=== PATIENT | male | born 1950 | race Caucasian/White ===

== ENCOUNTER 2018-09-21 09:14 | Inpatient (IN) | payer MEDICARE ==
[2018-09-21] VITALS (24 sets, daily range): BP systolic 79–161; BP diastolic 42–113
[~2018-09-21] VITALS: Ht 172.7 cm; Wt 84.4 kg
[2018-09-21] MEDS ORDERED: AMPICILLIN SOD/SULBACTAM NA 3 G in SODIUM CHLORIDE 0.9% 100 ML IV STA (10:31)
[2018-09-21] MEDS ORDERED: SULFACETAMIDE SODIUM 10% OPHTH DROPS 15ML BOTHEYE STA (10:31)
[2018-09-21] MEDS ORDERED: KETOROLAC 30MG/ML VIAL IV ONE (10:45)
[2018-09-21] MEDS ORDERED: SODIUM CHLORIDE 0.9% 1000ML BAG (SEPSIS BOLUS) IV ONE (10:45)
[2018-09-21 11:03] LABS: BASOPHILS % 0.7 % (0.0-2.0); EOSINOPHILS % 0.6 % (0.0-5.0); HEMOGLOBIN. 16.3 g/dL (14.0-18.0); LYMPHOCYTES % 9.7 % (20.0-50.0); MEAN CORPUSCULAR HEMOGLOBIN 28.8 pg (28.0-32.0); MEAN CORPUSCULAR VOLUME 86.1 fL (80.0-94.0); MEAN PLATELET VOLUME 7.9 fl (7.4-10.4); MONOCYTES % 12.4 % (2.0-8.0); NEUTROPHILS % 76.6 % (40.0-76.0); PLATELET 372 x1000/uL (130-400); RED BLOOD CELL COUNT 5.69 mill/uL (4.7-6.1); RED CELL DISTRIBUTION WIDTH 14.9 % (11.6-14.6)
[2018-09-21 11:11] LABS: CHLORIDE 95 mEq/L (98-107)
[2018-09-21 11:15] LABS: ETHANOL BLOOD < 10 mg/dL
[2018-09-21] MEDS ORDERED: LEVETIRACETAM 500MG PREMIX 100 ML IV ONE (11:15)
[2018-09-21] MEDS ORDERED: DEXAMETHASONE 10 MG/ML VIAL IV ONE (11:30)
[2018-09-21] MEDS ORDERED: VANCOMYCIN 1 G PREMIX 200 ML IV SCH (12:45)
[2018-09-21 13:31] LABS: PARTIAL THROMBOPLASTIN TIME 33.5 sec (23.4-31.0); PROTHROMBIN TIME 10.4 sec (9.1-11.1)
[2018-09-21] MEDS ORDERED: MAGNESIUM/ALUMINUM HYDROXIDE/SIMETHICONE 30ML UDC PO PRN (15:15)
[2018-09-21] MEDS ORDERED: ONDANSETRON HCL 4MG/2ML INJ IV PRN (15:15)
[2018-09-21] MEDS ORDERED: DOCUSATE SODIUM 100MG CAPSULE PO PRN (15:15)
[2018-09-21] MEDS ORDERED: IPRATROPIUM/ALBUTEROL 0.5-3(2.5)MG/3ML NEB INH PRN (15:15)
[2018-09-21] MEDS ORDERED: CLONIDINE 0.1MG TABLET PO PRN (15:15)
[2018-09-21] MEDS ORDERED: SODIUM CHLORIDE 0.45% 1,000 ML IV SCH (16:04)
[2018-09-21] MEDS ORDERED: KETOROLAC 30MG/ML VIAL IV PRN (16:09)
[2018-09-21] MEDS ORDERED: AMPICILLIN 2,000 MG in SODIUM CHLORIDE 0.9% 100 ML IV SCH (17:00)
[2018-09-21 17:19] LABS: TOTAL IRON BINDING CAPACITY 522 ug/dL (250-450)
[2018-09-21] MEDS ORDERED: NICARDIPINE 100 MG in SODIUM CHLORIDE 0.9% 60 ML IV PRN (17:30)
[2018-09-21 17:33] LABS: FERRITIN 233 ng/mL (22-322)
[2018-09-21 17:46] LABS: VITAMIN B12 SERUM 1383 pg/mL (211-911)
[2018-09-21] MEDS: DEXAMETHASONE 4MG/ML 1ML VIAL IV SCH (17:47)
[2018-09-21 17:48] LABS: FOLIC ACID (FOLATE) SERUM > 20.00 ng/mL (>5.38)
[2018-09-21] MEDS: DEXT 5%/LACTATED RINGERS 1,000 ML IV SCH (17:48)
[2018-09-21] MEDS: SULFACETAMIDE SODIUM 10% OPHTH DROPS 15ML EACHEYE SCH ×2 (18:00→21:31)
[2018-09-21 18:13] LABS: HEPATITIS B SURFACE ANTIGEN NEGATIVE
[2018-09-21 18:43] LABS: HEPATITIS A AB IGM NEGATIVE (NEGATIVE)
[2018-09-21] MEDS: AMPICILLIN 2,000 MG in SODIUM CHLORIDE 0.9% 100 ML IV SCH (20:27)
[2018-09-21] MEDS: LEVETIRACETAM 250 MG in SODIUM CHLORIDE 0.9% 100 ML IV SCH (21:30)
[2018-09-22] VITALS (135 sets, daily range): BP systolic 105–184; BP diastolic 55–111
[2018-09-22] MEDS: DEXAMETHASONE 4MG/ML 1ML VIAL IV SCH ×2 (00:07→07:06)
[2018-09-22] MEDS: VANCOMYCIN 1 G PREMIX 200 ML IV SCH ×2 (01:30→14:30)
[2018-09-22] MEDS: AMPICILLIN 2,000 MG in SODIUM CHLORIDE 0.9% 100 ML IV SCH (03:36)
[2018-09-22 05:45] LABS: BASOPHILS % 0.1 % (0.0-2.0); HEMATOCRIT. 40.1 % (42.0-52.0); HEMOGLOBIN. 13.6 g/dL (14.0-18.0); LYMPHOCYTES % 9.4 % (20.0-50.0); MEAN CORPUSCULAR VOLUME 85.3 fL (80.0-94.0); MEAN PLATELET VOLUME 8.2 fl (7.4-10.4); MONOCYTES % 9.4 % (2.0-8.0); NEUTROPHILS % 81.1 % (40.0-76.0); PLATELET 336 x1000/uL (130-400); RED CELL DISTRIBUTION WIDTH 14.5 % (11.6-14.6)
[2018-09-22 05:53] LABS: CHLORIDE 104 mEq/L (98-107)
[2018-09-22 06:03] LABS: LDL CHOLESTEROL 67 mg/dL (5-100)
[2018-09-22 06:04] LABS: HDL CHOLESTEROL 41 mg/dL (40-59); T4 FREE 1.34 ng/dL (0.76-1.46)
[2018-09-22] MEDS ORDERED: GELATIN SPONGE,ABSORBABLE 12-7MM SPONGE ONE (07:23)
[2018-09-22] MEDS ORDERED: THROMBIN (BOVINE) 5000 UNITS/VIAL TOP ONE (07:24)
[2018-09-22] MEDS ORDERED: LIDOCAINE HCL/EPINEPHRINE 1%-EPI 1:100,000 20 ML VIAL ONE (07:24)
[2018-09-22] MEDS ORDERED: BACITRACIN 50,000 UNITS/VIAL ONE (07:25)
[2018-09-22] MEDS ORDERED: NORMAL SALINE 0.9% 10 ML SYR ONE (07:28)
[2018-09-22] MEDS ORDERED: GADOBENATE DIMEGLUMINE 529 MG/ML 10ML IV ONE (07:53)
[2018-09-22] MEDS ORDERED: MULTIVITAMINS,THER W-MINERALS TABLET PO SCH (09:00)
[2018-09-22] MEDS: SULFACETAMIDE SODIUM 10% OPHTH DROPS 15ML EACHEYE SCH ×3 (09:00→21:39)
[2018-09-22] MEDS ORDERED: THIAMINE HCL 100MG TABLET PO SCH (09:00)
[2018-09-22] MEDS ORDERED: FOLIC ACID 1MG TABLET PO SCH (09:00)
[2018-09-22] MEDS: PANTOPRAZOLE SODIUM 40 MG/VIAL IV SCH (09:07)
[2018-09-22] MEDS: LEVETIRACETAM 250 MG in SODIUM CHLORIDE 0.9% 100 ML IV SCH (09:07)
[2018-09-22] MEDS ORDERED: BACITRACIN 15GM TUBE TOP ONE (09:23)
[2018-09-22] MEDS ORDERED: POVIDONE-IODINE OINT 28.4GM TOP ONE (09:23)
[2018-09-22] MEDS ORDERED: LIDOCAINE HCL/PF 1% 10 MG/ML 5ML VIAL ONE (10:05)
[2018-09-22] MEDS ORDERED: PROPOFOL 200MG/20ML VIAL IV ONE (10:05)
[2018-09-22] MEDS ORDERED: FENTANYL CITRATE/PF 50MCG/ML 2ML VIAL ONE ×2 (10:05→11:13)
[2018-09-22] MEDS ORDERED: CEFAZOLIN SODIUM 1000MG/VIAL ONE (10:05)
[2018-09-22] MEDS ORDERED: ROCURONIUM BROMIDE 10MG/ML VIAL 5ML IV ONE ×2 (10:05→10:59)
[2018-09-22] MEDS ORDERED: SODIUM CHLORIDE 0.9% 10ML VIAL ONE ×2 (10:07→11:09)
[2018-09-22] MEDS ORDERED: ONDANSETRON HCL 4MG/2ML INJ ONE (10:10)
[2018-09-22] MEDS ORDERED: NICARDIPINE 100 MG in SODIUM CHLORIDE 0.9% 60 ML IV PRN (10:15)
[2018-09-22] MEDS ORDERED: VECURONIUM BROMIDE 10 MG/VIAL IV ONE (11:09)
[2018-09-22] MEDS ORDERED: LEVETIRACETAM 500 MG in SODIUM CHLORIDE 0.9% 100 ML IV SCH (11:15)
[2018-09-22] MEDS ORDERED: LEVOFLOXACIN 500MG PREMIX 100 ML IV SCH (11:15)
[2018-09-22] MEDS ORDERED: LEVETIRACETAM 500MG PREMIX 100 ML IV SCH (11:15)
[2018-09-22] MEDS ORDERED: HYDROMORPHONE HCL/PF 2MG/ML CPJ IV PRN (11:30)
[2018-09-22] MEDS ORDERED: LABETALOL 5MG/ML SYR 20 MG/4 ML SYRINGE IV PRN (11:30)
[2018-09-22] MEDS ORDERED: ONDANSETRON HCL 4MG/2ML INJ IV PRN (11:30)
[2018-09-22] MEDS ORDERED: MEPERIDINE HCL/PF 25MG/ML CPJ IV PRN (11:30)
[2018-09-22] MEDS ORDERED: MORPHINE SULFATE 4 MG/ML CPJ (NOT FOR IM USE) IV PRN (11:45)
[2018-09-22] MEDS: NICARDIPINE 100 MG in SODIUM CHLORIDE 0.9% 60 ML IV PRN ×2 (12:00→18:16)
[2018-09-22] MEDS: DEXT 5%/LACTATED RINGERS 1,000 ML IV SCH (12:00)
[2018-09-22] MEDS ORDERED: HYDRALAZINE 20MG/ML VIAL IV ONE (12:15)
[2018-09-22] MEDS ORDERED: PROPOFOL 10MG/ML 100ML 100 ML IV PRN (13:00)
[2018-09-22] MEDS ORDERED: FOLIC ACID 1 MG, THIAMINE HCL 100 MG, MVI, ADULT NO.1 10 ML in DEXT 5%/LACTATED RINGERS... IV ONE ×4 (13:30)
[2018-09-22] MEDS: PROPOFOL 10MG/ML 100ML 100 ML IV PRN ×2 (13:30→21:40)
[2018-09-22 13:44] LABS: BG BASE EXCESS -2.7 mmol/L (-2.0-2.0); BG CARBOXYHEMOGLOBIN 0.7 % (0.5-1.5); BG DEOXYHEMOGLOBIN 0.3 % (0.0-5.0); BG FRACTION INSPIRED OXYGEN 100; BG HCO3 ACT 21.8 mmol/L (22.0-26.0); BG METHEMOGLOBIN 0.5 % (0.0-1.5); BG OXYGEN SATURATION 99.7 % (92.0-98.5); BG OXYHEMOGLOBIN 98.5 % (94.0-97.0); BG PCO2 36.9 mmHg (35.0-45.0); BG PH 7.389 (7.350-7.450); BG PO2 371.2 mmHg (75.0-100.0); BG SAMPLE SITE RIGHT RADIAL; BG TIDAL VOLUME(mL) 500 mL; BG TOTAL HEMOGLOBIN 14.5 g/dL (12.0-18.0); BG VENT MODE VENT - A/C; BG VENT RATE 12 set
[2018-09-22] MEDS ORDERED: LIDOCAINE HCL 1% 20ML VIAL (Pyxis) INJ ONE (14:26)
[2018-09-22] MEDS: PIPERACILLIN/TAZ 3.375G PREMIX 50 ML IV SCH ×2 (19:00→23:54)
[2018-09-22] MEDS: LEVETIRACETAM 500 MG in SODIUM CHLORIDE 0.9% 100 ML IV SCH (21:40)
[2018-09-23] VITALS (94 sets, daily range): BP systolic 98–143; BP diastolic 51–87
[2018-09-23] MEDS: VANCOMYCIN 1 G PREMIX 200 ML IV SCH (01:42)
[2018-09-23] MEDS: PROPOFOL 10MG/ML 100ML 100 ML IV PRN ×4 (01:43→12:43)
[2018-09-23] MEDS: PIPERACILLIN/TAZ 3.375G PREMIX 50 ML IV SCH ×3 (05:04→17:42)
[2018-09-23 06:07] LABS: BASOPHILS % 0.2 % (0.0-2.0); HEMATOCRIT. 36.9 % (42.0-52.0); HEMOGLOBIN. 12.2 g/dL (14.0-18.0); LYMPHOCYTES % 12.1 % (20.0-50.0); MEAN CORPUSCULAR HEMOGLOBIN 28.5 pg (28.0-32.0); MEAN PLATELET VOLUME 8.3 fl (7.4-10.4); MONOCYTES % 13.4 % (2.0-8.0); NEUTROPHILS % 73.3 % (40.0-76.0); PLATELET 288 x1000/uL (130-400); RED CELL DISTRIBUTION WIDTH 14.7 % (11.6-14.6)
[2018-09-23 06:35] LABS: CHLORIDE 107 mEq/L (98-107)
[2018-09-23 07:31] LABS: *AMPHETAMINES SCREEN URINE NEGATIVE (NEGATIVE); *BARBITURATES SCREEN URINE NEGATIVE (NEGATIVE); *BENZODIAZEPINES SCREEN URINE NEGATIVE (NEGATIVE); *COCAINE SCREEN URINE NEGATIVE (NEGATIVE)
[2018-09-23 07:32] LABS: CANNABINOID URINE SCREEN NEGATIVE (NEGATIVE); METHADONE URINE SCREEN NEGATIVE (NEGATIVE); OPIATES URINE SCREEN PRESUMTIVE POSITIVE (NEGATIVE); PHENCYCLIDINE URINE SCREEN NEGATIVE (NEGATIVE)
[2018-09-23] MEDS: LEVETIRACETAM 500 MG in SODIUM CHLORIDE 0.9% 100 ML IV SCH ×2 (08:47→20:34)
[2018-09-23] MEDS: PANTOPRAZOLE SODIUM 40 MG/VIAL IV SCH (08:47)
[2018-09-23 08:54] LABS: CLARITY URINE CLOUDY (CLEAR); COLOR URINE YELLOW (YELLOW); KETONES URINE NEGATIVE (NEGATIVE); LEUKOCYTE ESTERASE URINE NEGATIVE (NEGATIVE); NITRITE URINE NEGATIVE (NEGATIVE); OCCULT BLOOD URINE 2+ (NEGATIVE); PH URINE 5.5 (4.5-8.0); PROTEIN URINE TRACE (NEGATIVE); SPECIFIC GRAVITY URINE 1.041 (1.005-1.030)
[2018-09-23] MEDS: SULFACETAMIDE SODIUM 10% OPHTH DROPS 15ML EACHEYE SCH ×4 (08:59→20:34)
[2018-09-23] MEDS: DEXT 5%/LACTATED RINGERS 1,000 ML IV SCH ×2 (14:55→18:15)
[2018-09-23] MEDS: VANCOMYCIN 750 MG PREMIX 150 ML IV SCH (16:37)
[2018-09-23 17:16] LABS: BG BASE EXCESS 2.5 mmol/L (-2.0-2.0); BG CARBOXYHEMOGLOBIN 0.3 % (0.5-1.5); BG DEOXYHEMOGLOBIN 0.9 % (0.0-5.0); BG FRACTION INSPIRED OXYGEN 40; BG METHEMOGLOBIN 0.2 % (0.0-1.5); BG OXYGEN SATURATION 99.1 % (92.0-98.5); BG OXYHEMOGLOBIN 98.6 % (94.0-97.0); BG PCO2 36.5 mmHg (35.0-45.0); BG PH 7.471 (7.350-7.450); BG PO2 158.9 mmHg (75.0-100.0); BG PRESSURE SUPPORT 6; BG SAMPLE SITE RIGHT BRACHIAL; BG TOTAL HEMOGLOBIN 13.2 g/dL (12.0-18.0); BG VENT MODE VENT - CPAP
[2018-09-24] VITALS (94 sets, daily range): BP systolic 104–156; BP diastolic 56–101
[2018-09-24] MEDS: PIPERACILLIN/TAZ 3.375G PREMIX 50 ML IV SCH ×4 (00:36→18:56)
[2018-09-24] MEDS: NICARDIPINE 100 MG in SODIUM CHLORIDE 0.9% 60 ML IV PRN ×2 (03:56→18:57)
[2018-09-24] MEDS: VANCOMYCIN 750 MG PREMIX 150 ML IV SCH (05:20)
[2018-09-24 05:52] LABS: BASOPHILS % 0.5 % (0.0-2.0); EOSINOPHILS % 4.9 % (0.0-5.0); HEMATOCRIT. 35.7 % (42.0-52.0); HEMOGLOBIN. 11.9 g/dL (14.0-18.0); LYMPHOCYTES % 17.5 % (20.0-50.0); MEAN CORPUSCULAR HEMOGLOBIN 28.8 pg (28.0-32.0); MEAN CORPUSCULAR VOLUME 86.3 fL (80.0-94.0); MEAN PLATELET VOLUME 8.5 fl (7.4-10.4); MONOCYTES % 13.8 % (2.0-8.0); NEUTROPHILS % 63.3 % (40.0-76.0); PLATELET 291 x1000/uL (130-400); RED BLOOD CELL COUNT 4.14 mill/uL (4.7-6.1); RED CELL DISTRIBUTION WIDTH 14.9 % (11.6-14.6)
[2018-09-24 05:55] LABS: CHLORIDE 105 mEq/L (98-107)
[2018-09-24] MEDS: PANTOPRAZOLE SODIUM 40 MG/VIAL IV SCH (08:01)
[2018-09-24] MEDS: LEVETIRACETAM 500 MG in SODIUM CHLORIDE 0.9% 100 ML IV SCH ×2 (08:01→21:08)
[2018-09-24 08:27] LABS: HIV SCREEN 4G Non Reactive (Non Reactive)
[2018-09-24] MEDS: SULFACETAMIDE SODIUM 10% OPHTH DROPS 15ML EACHEYE SCH ×4 (09:00→21:08)
[2018-09-24] MEDS: DEXT 5%/LACTATED RINGERS 1,000 ML IV SCH (10:55)
[2018-09-24] MEDS ORDERED: DILTIAZEM HCL 30MG TABLET PO NR (14:00)
[2018-09-24] MEDS ORDERED: POTASSIUM CHLORIDE INJ 40 MEQ in DEXT 5% WATER 250 ML IV SCH (15:30)
[2018-09-24] MEDS: ACETAMINOPHEN 325MG TABLET PO PRN (19:32)
[2018-09-24] MEDS: DILTIAZEM HCL 30MG TABLET PO SCH (19:32)
[2018-09-24] MEDS: VANCOMYCIN 750 MG in SODIUM CHLORIDE 0.9% 100 ML IV SCH (20:01)
[2018-09-25] VITALS (97 sets, daily range): BP systolic 114–158; BP diastolic 60–86
[2018-09-25] MEDS: PIPERACILLIN/TAZ 3.375G PREMIX 50 ML IV SCH ×5 (00:50→23:48)
[2018-09-25] MEDS: DEXT 5%/LACTATED RINGERS 1,000 ML IV SCH (03:13)
[2018-09-25] MEDS: VANCOMYCIN 750 MG in SODIUM CHLORIDE 0.9% 100 ML IV SCH (04:18)
[2018-09-25] MEDS: DILTIAZEM HCL 30MG TABLET PO SCH ×4 (05:21→21:06)
[2018-09-25 06:27] LABS: BASOPHILS % 0.5 % (0.0-2.0); EOSINOPHILS % 5.9 % (0.0-5.0); HEMOGLOBIN. 12.7 g/dL (14.0-18.0); LYMPHOCYTES % 20.8 % (20.0-50.0); MEAN CORPUSCULAR VOLUME 84.8 fL (80.0-94.0); MEAN PLATELET VOLUME 8.3 fl (7.4-10.4); MONOCYTES % 13.1 % (2.0-8.0); NEUTROPHILS % 59.7 % (40.0-76.0); PLATELET 330 x1000/uL (130-400); RED BLOOD CELL COUNT 4.36 mill/uL (4.7-6.1); RED CELL DISTRIBUTION WIDTH 14.4 % (11.6-14.6)
[2018-09-25 06:28] LABS: CHLORIDE 103 mEq/L (98-107)
[2018-09-25] MEDS: PANTOPRAZOLE SODIUM 40 MG/VIAL IV SCH (08:48)
[2018-09-25] MEDS: SULFACETAMIDE SODIUM 10% OPHTH DROPS 15ML EACHEYE SCH ×4 (08:48→21:05)
[2018-09-25] MEDS: LEVETIRACETAM 500 MG in SODIUM CHLORIDE 0.9% 100 ML IV SCH ×2 (08:49→21:06)
[2018-09-25] MEDS ORDERED: LOSARTAN POTASSIUM 25 MG TABLET NG NR (11:15)
[2018-09-25] MEDS: VANCOMYCIN 1,250 MG in SODIUM CHLORIDE 0.9% 250 ML IV SCH (14:30)
[2018-09-25] MEDS: NICARDIPINE 100 MG in SODIUM CHLORIDE 0.9% 60 ML IV PRN (18:12)
[2018-09-25] MEDS: MORPHINE SULFATE 4 MG/ML CPJ (NOT FOR IM USE) IV PRN (18:17)
[2018-09-26] VITALS (82 sets, daily range): BP systolic 101–137; BP diastolic 39–99
[2018-09-26] MEDS: VANCOMYCIN 1,250 MG in SODIUM CHLORIDE 0.9% 250 ML IV SCH (02:54)
[2018-09-26 05:49] LABS: BASOPHILS % 0.6 % (0.0-2.0); EOSINOPHILS % 4.4 % (0.0-5.0); HEMOGLOBIN. 12.6 g/dL (14.0-18.0); LYMPHOCYTES % 20.8 % (20.0-50.0); MEAN CORPUSCULAR VOLUME 85.2 fL (80.0-94.0); MEAN PLATELET VOLUME 7.8 fl (7.4-10.4); MONOCYTES % 11.4 % (2.0-8.0); NEUTROPHILS % 62.8 % (40.0-76.0); PLATELET 369 x1000/uL (130-400); RED BLOOD CELL COUNT 4.34 mill/uL (4.7-6.1); RED CELL DISTRIBUTION WIDTH 14.5 % (11.6-14.6)
[2018-09-26 06:04] LABS: CHLORIDE 102 mEq/L (98-107)
[2018-09-26] MEDS: DILTIAZEM HCL 30MG TABLET PO SCH (06:16)
[2018-09-26] MEDS: PIPERACILLIN/TAZ 3.375G PREMIX 50 ML IV SCH ×3 (06:17→20:17)
[2018-09-26] MEDS: SULFACETAMIDE SODIUM 10% OPHTH DROPS 15ML EACHEYE SCH ×4 (08:45→20:20)
[2018-09-26] MEDS: PANTOPRAZOLE SODIUM 40 MG/VIAL IV SCH (08:45)
[2018-09-26] MEDS: LEVETIRACETAM 500 MG in SODIUM CHLORIDE 0.9% 100 ML IV SCH ×2 (08:46→21:20)
[2018-09-26] MEDS: NICARDIPINE 100 MG in SODIUM CHLORIDE 0.9% 60 ML IV PRN (08:48)
[2018-09-26] MEDS ORDERED: LOSARTAN POTASSIUM 25 MG TABLET NG SCH (09:00)
[2018-09-26] MEDS ORDERED: LOSARTAN POTASSIUM 25 MG TABLET PO NR (09:00)
[2018-09-26] MEDS ORDERED: LOSARTAN POTASSIUM 25 MG TABLET PO ONE (09:30)
[2018-09-26] MEDS ORDERED: BISACODYL 10MG SUPP PR PRN (09:30)
[2018-09-26] MEDS ORDERED: PIPERACILLIN/TAZ 3.375G PREMIX 50 ML IV SCH (11:45)
[2018-09-26] MEDS: VANCOMYCIN 1250MG in DEXTROSE 5% WATER 250ML IV SCH (15:08)
[2018-09-26] MEDS: MORPHINE SULFATE 4 MG/ML CPJ (NOT FOR IM USE) IV PRN ×2 (15:09→21:52)
[2018-09-26] MEDS: DOCUSATE SODIUM 100MG CAPSULE PO SCH (17:06)
[2018-09-26] MEDS ORDERED: LOSARTAN POTASSIUM 50 MG TABLET NG SCH (21:00)
[2018-09-26] MEDS ORDERED: LACTULOSE 20G/30ML UDC PO PRN (21:00)
[2018-09-26] MEDS: DILTIAZEM HCL 90MG TABLET PO SCH (21:22)
[2018-09-27] VITALS (25 sets, daily range): BP systolic 100–144; BP diastolic 55–99
[2018-09-27] MEDS: PIPERACILLIN/TAZ 3.375G PREMIX 50 ML IV SCH ×4 (02:21→20:30)
[2018-09-27] MEDS: MORPHINE SULFATE 4 MG/ML CPJ (NOT FOR IM USE) IV PRN (02:22)
[2018-09-27] MEDS: VANCOMYCIN 1250MG in DEXTROSE 5% WATER 250ML IV SCH ×2 (04:13→16:02)
[2018-09-27] MEDS: DILTIAZEM HCL 90MG TABLET PO SCH ×3 (05:21→21:47)
[2018-09-27 05:31] LABS: BASOPHILS % 0.9 % (0.0-2.0); EOSINOPHILS % 4.4 % (0.0-5.0); HEMATOCRIT. 36.2 % (42.0-52.0); HEMOGLOBIN. 12.3 g/dL (14.0-18.0); LYMPHOCYTES % 17.4 % (20.0-50.0); MEAN CORPUSCULAR VOLUME 85.3 fL (80.0-94.0); MEAN PLATELET VOLUME 7.6 fl (7.4-10.4); MONOCYTES % 10.7 % (2.0-8.0); NEUTROPHILS % 66.6 % (40.0-76.0); PLATELET 392 x1000/uL (130-400); RED BLOOD CELL COUNT 4.24 mill/uL (4.7-6.1); RED CELL DISTRIBUTION WIDTH 14.7 % (11.6-14.6)
[2018-09-27 05:43] LABS: CHLORIDE 103 mEq/L (98-107)
[2018-09-27] MEDS: LEVETIRACETAM 500 MG in SODIUM CHLORIDE 0.9% 100 ML IV SCH ×2 (09:12→22:16)
[2018-09-27] MEDS: PANTOPRAZOLE SODIUM 40 MG/VIAL IV SCH (09:16)
[2018-09-27] MEDS: DOCUSATE SODIUM 100MG CAPSULE PO SCH ×2 (09:17→17:39)
[2018-09-27] MEDS: ACETAMINOPHEN 325MG TABLET PO PRN (09:17)
[2018-09-27] MEDS: LOSARTAN POTASSIUM 50 MG TABLET PO SCH (09:17)
[2018-09-27] MEDS: SULFACETAMIDE SODIUM 10% OPHTH DROPS 15ML EACHEYE SCH ×4 (10:00→20:36)
[2018-09-27] MEDS: HYDROCODONE/ACETAMINOPHEN 5/325MG TABLET PO PRN ×2 (15:34→20:31)
[2018-09-28] VITALS: BP 103/69
[2018-09-28] MEDS: HYDROCODONE/ACETAMINOPHEN 5/325MG TABLET PO PRN ×2 (00:47→14:11)
[2018-09-28] MEDS: PIPERACILLIN/TAZ 3.375G PREMIX 50 ML IV SCH ×4 (02:52→21:11)
[2018-09-28] MEDS: VANCOMYCIN 1250MG in DEXTROSE 5% WATER 250ML IV SCH ×2 (03:44→14:55)
[2018-09-28 04:00] VITALS: BP 141/75
[2018-09-28] MEDS: DILTIAZEM HCL 90MG TABLET PO SCH ×3 (05:43→21:11)
[2018-09-28 06:08] LABS: BASOPHILS % 0.9 % (0.0-2.0); EOSINOPHILS % 4.4 % (0.0-5.0); HEMATOCRIT. 38.5 % (42.0-52.0); HEMOGLOBIN. 12.9 g/dL (14.0-18.0); MEAN CORPUSCULAR HEMOGLOBIN 28.9 pg (28.0-32.0); MEAN CORPUSCULAR VOLUME 86.4 fL (80.0-94.0); MEAN PLATELET VOLUME 7.3 fl (7.4-10.4); MONOCYTES % 10.4 % (2.0-8.0); NEUTROPHILS % 64.3 % (40.0-76.0); PLATELET 383 x1000/uL (130-400); RED BLOOD CELL COUNT 4.45 mill/uL (4.7-6.1); RED CELL DISTRIBUTION WIDTH 14.5 % (11.6-14.6)
[2018-09-28 06:16] LABS: CHLORIDE 101 mEq/L (98-107)
[2018-09-28 07:47] VITALS: BP 141/82
[2018-09-28] MEDS: PANTOPRAZOLE SODIUM 40 MG/VIAL IV SCH (08:47)
[2018-09-28] MEDS: LOSARTAN POTASSIUM 50 MG TABLET PO SCH (08:47)
[2018-09-28] MEDS: DOCUSATE SODIUM 100MG CAPSULE PO SCH ×2 (08:47→17:52)
[2018-09-28] MEDS: LEVETIRACETAM 500 MG in SODIUM CHLORIDE 0.9% 100 ML IV SCH ×2 (08:48→21:11)
[2018-09-28] MEDS: SULFACETAMIDE SODIUM 10% OPHTH DROPS 15ML EACHEYE SCH ×3 (08:50→17:52)
[2018-09-28 12:00] VITALS: BP 134/77
[2018-09-28 16:14] VITALS: BP 125/74
[2018-09-28 20:00] VITALS: BP 144/87
[2018-09-29] VITALS (7 sets, daily range): BP systolic 104–148; BP diastolic 67–114
[2018-09-29] MEDS: HYDROCODONE/ACETAMINOPHEN 5/325MG TABLET PO PRN
[2018-09-29] MEDS: PIPERACILLIN/TAZ 3.375G PREMIX 50 ML IV SCH ×3 (01:46→14:27)
[2018-09-29] MEDS: VANCOMYCIN 1250MG in DEXTROSE 5% WATER 250ML IV SCH (03:21)
[2018-09-29] MEDS: DILTIAZEM HCL 90MG TABLET PO SCH ×3 (06:09→21:25)
[2018-09-29 06:51] LABS: BASOPHILS % 0.9 % (0.0-2.0); EOSINOPHILS % 5.3 % (0.0-5.0); HEMATOCRIT. 38.7 % (42.0-52.0); LYMPHOCYTES % 21.4 % (20.0-50.0); MEAN CORPUSCULAR HEMOGLOBIN 28.9 pg (28.0-32.0); MEAN PLATELET VOLUME 7.6 fl (7.4-10.4); MONOCYTES % 11.3 % (2.0-8.0); NEUTROPHILS % 61.1 % (40.0-76.0); PLATELET 442 x1000/uL (130-400); RED CELL DISTRIBUTION WIDTH 14.6 % (11.6-14.6)
[2018-09-29 06:56] LABS: CHLORIDE 100 mEq/L (98-107)
[2018-09-29] MEDS: PANTOPRAZOLE SODIUM 40 MG/VIAL IV SCH (08:51)
[2018-09-29] MEDS: LOSARTAN POTASSIUM 50 MG TABLET PO SCH (08:51)
[2018-09-29] MEDS: DOCUSATE SODIUM 100MG CAPSULE PO SCH ×3 (08:51→17:50)
[2018-09-29] MEDS: LEVETIRACETAM 500 MG in SODIUM CHLORIDE 0.9% 100 ML IV SCH ×2 (09:44→21:15)
[2018-09-29] MEDS: ACETAMINOPHEN 325MG TABLET PO PRN (15:47)
[2018-09-29] MEDS: LACTULOSE 20G/30ML UDC PO SCH ×3 (15:48→21:15)
[2018-09-29] MEDS: POLYETHYLENE GLYCOL 3350 (17GM) 1 DOSE PACK PO SCH (21:00)
[2018-09-29] MEDS: SULFAMETHOXAZOLE/TRIMETHOPRIM 800/160MG TABLET PO SCH (22:24)
[2018-09-30] VITALS: BP 130/73
[2018-09-30 04:00] VITALS: BP 146/87
[2018-09-30] MEDS: DILTIAZEM HCL 90MG TABLET PO SCH ×3 (05:27→21:22)
[2018-09-30] MEDS: DOCUSATE SODIUM 100MG CAPSULE PO SCH ×3 (08:52→18:07)
[2018-09-30] MEDS: SULFAMETHOXAZOLE/TRIMETHOPRIM 800/160MG TABLET PO SCH ×2 (08:52→20:38)
[2018-09-30] MEDS: LOSARTAN POTASSIUM 50 MG TABLET PO SCH (08:52)
[2018-09-30] MEDS: PANTOPRAZOLE SODIUM 40 MG/VIAL IV SCH (08:52)
[2018-09-30] MEDS: LEVETIRACETAM 500 MG in SODIUM CHLORIDE 0.9% 100 ML IV SCH ×2 (08:56→20:38)
[2018-09-30 12:00] VITALS: BP 137/80
[2018-09-30] MEDS ORDERED: NA PHOS,M-B/NA PHOS,DI-BA ENEMA 118ML PR NR (13:00)
[2018-09-30 20:00] VITALS: BP 110/57
[2018-09-30] MEDS: POLYETHYLENE GLYCOL 3350 (17GM) 1 DOSE PACK PO SCH (20:38)
[2018-10-01] VITALS: BP 143/77
[2018-10-01 04:00] VITALS: BP 128/60
[2018-10-01] MEDS: DILTIAZEM HCL 90MG TABLET PO SCH ×3 (05:15→22:00)
[2018-10-01 07:19] LABS: HEMATOCRIT. 40.7 % (42.0-52.0); HEMOGLOBIN. 13.7 g/dL (14.0-18.0); LYMPHOCYTES % 20.6 % (20.0-50.0); MEAN CORPUSCULAR HEMOGLOBIN 28.7 pg (28.0-32.0); MEAN CORPUSCULAR VOLUME 85.4 fL (80.0-94.0); MEAN PLATELET VOLUME 7.7 fl (7.4-10.4); MONOCYTES % 11.2 % (2.0-8.0); NEUTROPHILS % 64.2 % (40.0-76.0); PLATELET 485 x1000/uL (130-400); RED BLOOD CELL COUNT 4.77 mill/uL (4.7-6.1); RED CELL DISTRIBUTION WIDTH 14.9 % (11.6-14.6)
[2018-10-01 07:36] LABS: CHLORIDE 102 mEq/L (98-107)
[2018-10-01] MEDS: LOSARTAN POTASSIUM 50 MG TABLET PO SCH (08:52)
[2018-10-01] MEDS: LEVETIRACETAM 500 MG in SODIUM CHLORIDE 0.9% 100 ML IV SCH (08:52)
[2018-10-01] MEDS: SULFAMETHOXAZOLE/TRIMETHOPRIM 800/160MG TABLET PO SCH ×2 (08:52→21:59)
[2018-10-01] MEDS: DOCUSATE SODIUM 100MG CAPSULE PO SCH ×2 (08:52→16:39)
[2018-10-01] MEDS: PANTOPRAZOLE SODIUM 40 MG/VIAL IV SCH (08:52)
[2018-10-01 12:00] VITALS: BP 108/64
[2018-10-01] MEDS ORDERED: NA PHOS,M-B/NA PHOS,DI-BA ENEMA 118ML PR NR (13:15)
[2018-10-01 20:00] VITALS: BP 125/87
[2018-10-01] MEDS: POLYETHYLENE GLYCOL 3350 (17GM) 1 DOSE PACK PO SCH (21:58)
[2018-10-01] MEDS: LEVETIRACETAM 500MG TABLET PO SCH (21:59)
[2018-10-01] MEDS: HYDROCODONE/ACETAMINOPHEN 5/325MG TABLET PO PRN (22:07)
[2018-10-01 23:58] VITALS: BP 132/68
[2018-10-02 04:00] VITALS: BP 133/77
[2018-10-02] MEDS: DILTIAZEM HCL 90MG TABLET PO SCH ×3 (06:27→21:19)
[2018-10-02 08:00] VITALS: BP 145/78
[2018-10-02] MEDS: LEVETIRACETAM 500MG TABLET PO SCH ×2 (09:22→21:20)
[2018-10-02] MEDS: SULFAMETHOXAZOLE/TRIMETHOPRIM 800/160MG TABLET PO SCH ×2 (09:22→21:20)
[2018-10-02] MEDS: LOSARTAN POTASSIUM 50 MG TABLET PO SCH (09:22)
[2018-10-02] MEDS: PANTOPRAZOLE SODIUM 40 MG/VIAL IV SCH (09:23)
[2018-10-02] MEDS: DOCUSATE SODIUM 100MG CAPSULE PO SCH ×2 (09:23→18:21)
[2018-10-02 12:00] VITALS: BP 132/82
[2018-10-02 16:00] VITALS: BP 125/70
[2018-10-02] MEDS: HYDROCODONE/ACETAMINOPHEN 5/325MG TABLET PO PRN (18:08)
[2018-10-02 20:00] VITALS: BP 121/76
[2018-10-02] MEDS: POLYETHYLENE GLYCOL 3350 (17GM) 1 DOSE PACK PO SCH (21:20)
[2018-10-03] VITALS: BP 120/83
[2018-10-03 04:00] VITALS: BP 121/72
[2018-10-03] MEDS: DILTIAZEM HCL 90MG TABLET PO SCH ×3 (05:44→21:37)
[2018-10-03 08:00] VITALS: BP 132/63
[2018-10-03] MEDS: PANTOPRAZOLE SODIUM 40 MG/VIAL IV SCH (08:30)
[2018-10-03] MEDS: SULFAMETHOXAZOLE/TRIMETHOPRIM 800/160MG TABLET PO SCH ×2 (08:30→21:38)
[2018-10-03] MEDS: LOSARTAN POTASSIUM 50 MG TABLET PO SCH (08:30)
[2018-10-03] MEDS: DOCUSATE SODIUM 100MG CAPSULE PO SCH ×2 (08:30→16:00)
[2018-10-03] MEDS: LEVETIRACETAM 500MG TABLET PO SCH ×2 (08:30→21:38)
[2018-10-03 12:00] VITALS: BP 107/57
[2018-10-03 16:00] VITALS: BP 114/67
[2018-10-03 20:00] VITALS: BP 134/77
[2018-10-03] MEDS: POLYETHYLENE GLYCOL 3350 (17GM) 1 DOSE PACK PO SCH (21:37)
[2018-10-04] VITALS: BP 127/76
[2018-10-04 04:00] VITALS: BP 117/75
[2018-10-04] MEDS: DILTIAZEM HCL 90MG TABLET PO SCH ×3 (07:08→21:27)
[2018-10-04 08:00] VITALS: BP 123/72
[2018-10-04] MEDS: PANTOPRAZOLE SODIUM 40 MG/VIAL IV SCH (08:42)
[2018-10-04] MEDS: DOCUSATE SODIUM 100MG CAPSULE PO SCH ×2 (08:42→16:00)
[2018-10-04] MEDS: SULFAMETHOXAZOLE/TRIMETHOPRIM 800/160MG TABLET PO SCH ×2 (08:42→21:26)
[2018-10-04] MEDS: LOSARTAN POTASSIUM 50 MG TABLET PO SCH (08:43)
[2018-10-04] MEDS: LEVETIRACETAM 500MG TABLET PO SCH ×2 (08:43→21:26)
[2018-10-04 12:00] VITALS: BP 126/69
[2018-10-04 16:00] VITALS: BP 103/50
[2018-10-04 20:00] VITALS: BP 136/78
[2018-10-04] MEDS: POLYETHYLENE GLYCOL 3350 (17GM) 1 DOSE PACK PO SCH (21:27)
[2018-10-05] VITALS: BP 118/72
[2018-10-05 04:00] VITALS: BP 144/73
[2018-10-05] MEDS: DILTIAZEM HCL 90MG TABLET PO SCH ×3 (06:49→22:48)
[2018-10-05 06:52] LABS: BASOPHILS % 0.9 % (0.0-2.0); EOSINOPHILS % 3.5 % (0.0-5.0); HEMATOCRIT. 42.5 % (42.0-52.0); HEMOGLOBIN. 14.6 g/dL (14.0-18.0); LYMPHOCYTES % 21.1 % (20.0-50.0); MEAN CORPUSCULAR HEMOGLOBIN 29.2 pg (28.0-32.0); MEAN CORPUSCULAR VOLUME 85.2 fL (80.0-94.0); MEAN PLATELET VOLUME 7.8 fl (7.4-10.4); MONOCYTES % 9.1 % (2.0-8.0); NEUTROPHILS % 65.4 % (40.0-76.0); PLATELET 435 x1000/uL (130-400); RED BLOOD CELL COUNT 4.99 mill/uL (4.7-6.1); RED CELL DISTRIBUTION WIDTH 14.8 % (11.6-14.6)
[2018-10-05 07:24] LABS: CHLORIDE 102 mEq/L (98-107)
[2018-10-05 08:00] VITALS: BP 128/74
[2018-10-05] MEDS: LOSARTAN POTASSIUM 50 MG TABLET PO SCH (09:00)
[2018-10-05] MEDS: DOCUSATE SODIUM 100MG CAPSULE PO SCH ×2 (09:05→18:33)
[2018-10-05] MEDS: LEVETIRACETAM 500MG TABLET PO SCH ×2 (09:05→22:47)
[2018-10-05] MEDS: PANTOPRAZOLE SODIUM 40 MG/VIAL IV SCH (09:05)
[2018-10-05] MEDS: SULFAMETHOXAZOLE/TRIMETHOPRIM 800/160MG TABLET PO SCH ×2 (09:05→22:47)
[2018-10-05 12:00] VITALS: BP 137/78
[2018-10-05 16:00] VITALS: BP 127/72
[2018-10-05 20:00] VITALS: BP 107/53
[2018-10-05] MEDS: POLYETHYLENE GLYCOL 3350 (17GM) 1 DOSE PACK PO SCH (22:48)
[2018-10-06] VITALS: BP 90/51
[2018-10-06 04:00] VITALS: BP 101/59
[2018-10-06] MEDS: DILTIAZEM HCL 90MG TABLET PO SCH ×3 (06:00→21:43)
[2018-10-06 08:08] VITALS: BP 122/82
[2018-10-06] MEDS: DOCUSATE SODIUM 100MG CAPSULE PO SCH ×2 (08:33→16:52)
[2018-10-06] MEDS: SULFAMETHOXAZOLE/TRIMETHOPRIM 800/160MG TABLET PO SCH ×2 (08:33→21:43)
[2018-10-06] MEDS: LEVETIRACETAM 500MG TABLET PO SCH ×2 (08:33→21:43)
[2018-10-06] MEDS: PANTOPRAZOLE SODIUM 40 MG/VIAL IV SCH (08:33)
[2018-10-06] MEDS: LOSARTAN POTASSIUM 50 MG TABLET PO SCH (08:33)
[2018-10-06 12:00] VITALS: BP 119/83
[2018-10-06] MEDS ORDERED: LACTULOSE 20G/30ML UDC PO NR (15:55)
[2018-10-06 16:00] VITALS: BP 109/72
[2018-10-06] MEDS: HYDROCODONE/ACETAMINOPHEN 5/325MG TABLET PO PRN (16:53)
[2018-10-06 20:00] VITALS: BP 119/66
[2018-10-06] MEDS: POLYETHYLENE GLYCOL 3350 (17GM) 1 DOSE PACK PO SCH (21:00)
[2018-10-07] VITALS: BP 117/65
[2018-10-07 04:00] VITALS: BP 136/87
[2018-10-07] MEDS: DILTIAZEM HCL 90MG TABLET PO SCH ×2 (06:13→14:00)
[2018-10-07 08:00] VITALS: BP 115/67
[2018-10-07] MEDS: PANTOPRAZOLE SODIUM 40 MG/VIAL IV SCH (09:43)
[2018-10-07] MEDS: LEVETIRACETAM 500MG TABLET PO SCH (09:43)
[2018-10-07] MEDS: DOCUSATE SODIUM 100MG CAPSULE PO SCH ×2 (09:43→16:12)
[2018-10-07] MEDS: LOSARTAN POTASSIUM 50 MG TABLET PO SCH (09:45)
[2018-10-07 16:00] VITALS: BP 120/70
[2018-10-07 17:35] VITALS: BP 120/70
[2018-10-07] MEDS ORDERED: LACTULOSE 20G/30ML UDC PO SCH (17:42)
[2018-10-07] MEDS ORDERED: BISACODYL 10MG SUPP PR PRN (17:45)
[2018-10-07] MEDS ORDERED: NA PHOS,M-B/NA PHOS,DI-BA ENEMA 118ML PR NR (17:45)
[2018-10-07] MEDS ORDERED: POLYETHYLENE GLYCOL 3350 (17GM) 1 DOSE PACK PO SCH (21:00)
[2018-10-08] MEDS ORDERED: DOCUSATE SODIUM 100MG CAPSULE PO SCH (09:00)
== END 2018-10-07 19:00 | DRG 25 ==
LOC: ER 09:14 → MICUNO 11:54 → EDBEDREQ 12:01 → EDBEDREQTM 12:01 → ENRESERV 14:42 → MICUSO 16:26 → 5EST 09-27 09:40 → 6EST 09-29 12:05
PROVIDERS: ADMIT Internal Medicine; ATTEND Internal Medicine
PROC: 00U207Z Supplement Dura Mater with Autologous Tissue Substitute, Open Approach (ICD-10-PCS; principal; 2018-09-22)
PROC: 00C40ZZ Extirpation of Matter from Intracranial Subdural Space, Open Approach (ICD-10-PCS; 2018-09-22)
PROC: 05HY33Z Insertion of Infusion Device into Upper Vein, Percutaneous Approach (ICD-10-PCS; 2018-09-22)
PROC: B54NZZA Ultrasonography of Left Upper Extremity Veins, Guidance (ICD-10-PCS; 2018-09-22)
PROC: 00H032Z Insertion of Monitoring Device into Brain, Percutaneous Approach (ICD-10-PCS; 2018-09-22)
PROC: 0W9 Anatomical Regions, General, Drainage (ICD-10-PCS; 2018-09-22)
PROC: 4A1 Measurement and Monitoring, Physiological Systems, Monitoring (ICD-10-PCS; 2018-09-22)
DX: S06.5X0A Traumatic subdural hemorrhage without loss of consciousness, initial encounter (principal); G92 Toxic encephalopathy; J96.00 Acute respiratory failure, unspecified whether with hypoxia or hypercapnia; G82.50 Quadriplegia, unspecified; E44.0 Moderate protein-calorie malnutrition; E87.1 Hypo-osmolality and hyponatremia; N39.0 Urinary tract infection, site not specified; R47.01 Aphasia; I73.9 Peripheral vascular disease, unspecified; I10 Essential (primary) hypertension; I87.8 Other specified disorders of veins; E87.8 Other disorders of electrolyte and fluid balance, not elsewhere classified; H10.9 Unspecified conjunctivitis; M10.9 Gout, unspecified; M19.90 Unspecified osteoarthritis, unspecified site; R13.10 Dysphagia, unspecified; R26.9 Unspecified abnormalities of gait and mobility; S06.9X0A Unspecified intracranial injury without loss of consciousness, initial encounter; Z96.651 Presence of right artificial knee joint; F32.9 Major depressive disorder, single episode, unspecified; F41.9 Anxiety disorder, unspecified; X58.XXXA Exposure to other specified factors, initial encounter; Y93.89 Activity, other specified; Z59.0 Homelessness; Z63.8 Other specified problems related to primary support group; Y92.89 Other specified places as the place of occurrence of the external cause; Z68.28 Body mass index [BMI] 28.0-28.9, adult; Y99.8 Other external cause status
CPT/HCPCS: 36415; 36569; 36600; 70553; 71045; 73130; 76700; 76937; 80048; 80061; 80202; 80305; 82140; 82375; 82607; 82728; 82746; 82805; 82962; 83036; 83540; 83550; 83605; 84145; 84439; 84443; 84478; 84481; 84484; 84550; 86705; 86709; 86803; 86850; 86900; 87070; 87075; 87077; 87186; 87340; 87389; 88304; 92523; 92610; 93005; 93306; 93970; 94003; 96365; 96366; 97110; 97116; 97163; 97166; 97530; 97535; 99291; A6261; A9577; C1713; C1725; C9113; J0290; J0295; J0360; J0690; J1100; J1885; J1953; J1956; J2270; J2405; J2543; J2704; J3010; J3370; J3411; J3480; J3490; J7030; J7040; J7050; J7060; J7121; A4315